=== PATIENT | female | born 1965 | race Caucasian/White ===

== ENCOUNTER → 2016-10-22 | Outpatient (CLI) | payer BC ==
[~2016-10-22] MED LIST: SERT-234 PO
== END | disposition home or self-care (01) ==
LOC: C.LABSPEC 10:52
PROVIDERS: ATTEND Nurse Practitioner Family
DX: J02.9 Acute pharyngitis, unspecified (principal)

== ENCOUNTER 2024-04-15 17:18 | Observation (INO) ==
--- NOTE | 2024-04-15 17:22 | ED Triage Note ---
Date of Service April 15, 2024 Provider in Triage Author: Jordin Mendez History of Present Illness This patient was briefly evaluated while in triage. An abbreviated physical exam was performed. This patient is a 59-year-old Female who presents to the ED for evaluation chest pain/pressure, jaw pain on and off in the evenings x a couple of months last week happened during the day with vomiting and back pain left chest/neck pressure acutely today Physical Exam GENERAL: NAD CARDIOVASCULAR: RRR RESPIRATORY: CTA ABDOMEN: BS x 4. Nontender to palpation. Initial orders for labs and / or imaging were placed and patient was placed in the waiting area until a bed is available. Please see further documentation for the full ED course.
[2024-04-15] MEDS: ASPIRIN 81 MG CHEW PO STA (17:36)
[2024-04-15 17:51] LABS: Basophils # (auto) 0.02 K/uL (0.00-0.20); Basophils % (auto) 0.5 %; Eosinophils # (auto) 0.09 K/uL (0.00-0.50); Eosinophils % (auto) 2.2 %; Hematocrit (blood only) 39.7 % (37.0-47.0); Hemoglobin 13.6 g/dl (12.0-16.0); Immature Granulocytes # (auto) 0.01 K/uL (0.01-0.20); Immature Granulocytes % (auto) 0.2 %; Lymphocytes # (auto) 1.37 K/uL (1.20-3.40); Lymphocytes % (auto) 33.8 %; Mean Corpuscular Hemoglobin 29.4 pg (25.0-34.0); Mean Corpuscular Hgb Conc 34.3 g/dL (32.0-36.0); Mean Corpuscular Volume 85.7 fL (80.0-100.0); Mean Platelet Volume 9.6 fL (9.4-12.4); Monocytes # (auto) 0.35 K/uL (0.11-0.59); Monocytes % (auto) 8.6 %; Neutrophils # (auto) 2.21 K/uL (1.40-6.50); Neutrophils % (auto) 54.7 %; Platelet Count 172 K/uL (130-400); RDW Standard Deviation 37.8 fL (36.4-46.3); Red Blood Count 4.63 M/uL (4.20-5.40); White Blood Count 4.05 K/ul (4.8-10.8)
[2024-04-15 18:05] LABS: Albumin Globulin Ratio 1.6 (0.9-2); Albumin Level 4.7 gm/dl (3.4-5.0); BUN Creatinine Ratio 14.5 (10-20); Bilirubin,Total 0.5 mg/dl (0.2-1.0); Calcium 9.4 mg/dl (8.6-10.3); Est GFR (African American) 89.5 ml/min; Est GFR (Non-African American) 77.2 ml/min; Potassium 3.5 mmol/L (3.5-5.1); Total Protein 7.7 gm/dl (6.0-8.3)
--- NOTE | 2024-04-15 18:08 | XRay Report ---
XR chest 1V not portable CLINICAL HISTORY: Chest pain. COMPARISON STUDY: Chest radiograph July 21, 2014. FINDINGS: Postoperative findings within the spine are incidentally noted. Lung volumes are normal. Leonor ngs are clear. There is no pneumothorax or pleural effusion. Cardiac size is normal. Mediastinal cont ours are normal. There is no evidence for pulmonary edema. IMPRESSION: No acute cardiopulmonary findings. ACT 112: Negative or not required by law. Electronically signed by: Milton Estevez M.D. 04/15/2024 6:06 PM
[2024-04-15 18:12] LABS: Troponin I High Sensitivity 2.9 pg/ml (0-14)
[2024-04-15] MEDS: OPTIRAY 320 125ml IV ONE (19:06)
--- NOTE | 2024-04-15 19:16 | Emergency Department Note ---
Impression & Plan Precordial chest pain, Hypertension ED Provider Note NAME: CAIT AYALA AGE: 59 SEX: F : 1965 ARRIVES VIA: Walk-In INFORMANT: [Patient] ED PROVIDER(S): [Jose Talamantes MD] CHIEF COMPLAINT: Chest pain HISTORY OF PRESENT ILLNESS: The patient is a 59-year-old female with a family history of coronary disease. She states that for several weeks, she has noticed some chest pressure that goes to her teeth. This was first noticed initially at rest when in bed. The episodes would last 15 minutes. Over the last week, there have been increasing episodes. The severity has increased. Last week, during the day, she had an episode of pain that went to her teeth and back. She was nauseated and vomited 1 time. He thought for a while that taking a deep breath seemed to make the pain a bit worse across the anterior chest. She felt mildly short of breath. The patient states that since this episode a week ago, she has never felt back to baseline. She has not really noticed any exertional chest pain but there is a persistent heaviness across the chest. She has not had fever or cough. PMHx/PSHx/Social Hx: See Below PHYSICAL EXAM: GENERAL: Patient is in no acute distress. HEENT: No acute trauma, normocephalic atraumatic, mucous membranes moist, no nasal congestion. NECK: No stridor, no adenopathy, no meningismus, trachea is midline. LUNGS: Clear to auscultation bilaterally, no wheeze, no rhonchi, breath sounds equal. HEART: Subtle systolic murmur heard at the right sternal border. Regular rate and rhythm. Chest: Nontender chest wall. ABDOMEN: Soft, nontender, no peritonitis. EXTREMITIES: No cyanosis, full range of motion of all the joints without pain or difficulty. NEUROLOGIC: Oriented x 3, no acute motor or sensory deficits, no focal weakness. SKIN: No jaundice, no diaphoresis. DIFFERENTIAL DIAGNOSIS: Angina, AR, esophageal spasm, reflux, aortic dissection, PE, among others. EMERGENCY DEPARTMENT PROCEDURES: MEDICAL DECISION MAKING: There is no leukocytosis or concerning anemia. There is a normal platelet count. No renal failure or significant electrolyte abnormality. No concerning liver enzyme elevation. No evidence for pancreatitis. ECG shows a sinus rhythm, no acute ischemic change. Cardiac enzyme testing x 1 is not consistent with acute cardiac injury. Chest x-ray does not show mediastinal widening, pneumonia or pneumothorax. On exam, the patient was somewhat hypertensive. Her chest pain was not reproducible with palpation. Because of her complaints and description of the pain a chest CT was done, there was no aortic dissection or PE noted. The patient presents with chest pain which radiates to her teeth. Her episodes have been increasing in severity and frequency. The patient's complaints are possibly consistent with angina. I do think further cardiac workup is warranted. Patient had received oral aspirin in triage. No further/additional aspirin given. I did speak with the patient and case management, the on-call hospitalist was consulted. Prior/Outside records/notes reviewed: None ECG per my interpretation: Indication was chest pain. The ECG shows a normal sinus rhythm with a rate of 71. There is no ST elevation, no PVCs. The QTc is 425. Continuous Cardiac Monitoring per my interpretation: An order was placed for continuous cardiac monitoring. The monitor shows a rate of 85 with normal sinus rhythm. Imaging/x-ray results per my interpretation: Chest x-ray does not show mediastinal widening, pneumonia or pneumothorax. Chronic Medical/Social conditions affecting care: Care/Management discussed with: Case management, the on-call hospitalist. Level of care consideration(s): After review of the information above and other included data: --I believe the patient requires escalation of care to admission DISPOSITION: Admission Past Med/Surg History Problem List (Updated 04/16/24 @ 01:29 by Jose Talamantes MD) Hypertension (Acute) Precordial chest pain (Acute) Bulging lumbar disc Chest pain Left lower quadrant pain Depression Dyspepsia Cervical stenosis of spinal canal (Acute 08/04/14) Medical History Fracture, radius Surgical History H/O neck surgery History of tubal ligation Hx of laparoscopy Family History (Updated 10/01/22 @ 10:37 by DAMARIS Givens) Brother Psoriasis Father Diabetes Mother Dementia Cardiac disorder Family/Other Arthritis Denies family history of Ovarian cancer Prostate cancer Myocardial infarction Breast cancer Colorectal cancer Social History Smoking Status: Never smoker Second Hand Exposure: No; Do You Dip or Chew Tobacco: No; Hx Alcohol Use: No Hx Substance Use: No Preferred Language: Wolof Communication Ability: Effective Visual Impairment: No Limitations Hearing Ability: Normal Utilization Management Manager Required: No Beliefs That Will Affect Care: None marital status: Current Living Situation: Family Current Living Situation Comment: and son current occupational status: employed current occupation: C[employer]ER [employer] How many Children do You have: 3 Feels Safe at Home: Yes Childhood Exposure to Second-Hand Smoke: No Diet: regular caffeine: Yes during the past year weight has: increased > 10 lbs Dental Care, Regularly: Yes Physical Activity Frequency: Daily Seatbelt Use: always Sunscreen Use: Yes Assistive Devices: Denture - Upper and Glasses Allergies Allergies Allergy/AdvReac Type Severity Reaction Status Date / Time No Known Allergies Allergy Verified 10/28/23 09:43 Home Meds Home Medications Medication Instructions Recorded Confirmed betamethasone dipropionate 0.05 % 1 applic topical BID PRN Other 04/15/24 04/15/24 topical ointment calcipotriene 0.005 % topical cream 1 applic topical BID PRN Other 04/15/24 04/15/24 clobetasol 0.05 % topical ointment 1 applic topical BID PRN Other 04/15/24 04/15/24 mupirocin 2 % topical ointment 1 applic topical BID PRN Other 04/15/24 04/15/24 Previous Rx's Medication Instructions Recorded sertraline 100 mg tablet (Zoloft) 100 mg PO DAILY #90 tabs 04/15/24 Results & Data (ED) Vital Signs Vital Signs - 24 hr 04/15/24 17:20 04/15/24 19:10 04/15/24 19:52 Temperature 36.3 C L Temperature Source Temporal Artery Scan Pulse Rate 85 60 Pulse Rate from SpO2 Sensor Respiratory Rate 18 Respiratory Effort / Characteristics Non-Labored Respiratory Depth Normal Respiratory Pattern Regular Blood Pressure 187/102 H Blood Pressure Mean 130 Pulse Oximetry 98 Oxygen Delivery Method Room Air Room Air Sepsis Recent Fever Within 48 Hours No Sepsis New/Unexplained Change in Mental Status N/A Sepsis Action Taken by Nursing No Action Required 04/15/24 20:03 04/15/24 20:39 04/15/24 20:54 Temperature Temperature Source Pulse Rate 61 65 64 Pulse Rate from SpO2 Sensor 63 69 66 Respiratory Rate 17 20 12 Respiratory Effort / Characteristics Respiratory Depth Respiratory Pattern Blood Pressure 162/99 H 142/75 H Blood Pressure Mean 120 97 Pulse Oximetry 99 98 98 Oxygen Delivery Method Sepsis Recent Fever Within 48 Hours Sepsis New/Unexplained Change in Mental Status Sepsis Action Taken by Nursing 04/15/24 21:15 Temperature Temperature Source Pulse Rate 64 Pulse Rate from SpO2 Sensor 64 Respiratory Rate 18 Respiratory Effort / Characteristics Respiratory Depth Respiratory Pattern Blood Pressure 157/88 H Blood Pressure Mean 111 Pulse Oximetry 96 Oxygen Delivery Method Sepsis Recent Fever Within 48 Hours Sepsis New/Unexplained Change in Mental Status Sepsis Action Taken by Assisted Medications Current Medication List: was personally reviewed by me Laboratory Data Attestation: I reviewed the patient's lab results. 04/15/24 17:32 04/15/24 17:32 Lab Results 04/15/24 Range/Units 17:32 WBC 4.05 L (4.8-10.8) K/ul RBC 4.63 (4.20-5.40) M/uL Hgb 13.6 (12.0-16.0) g/dl Hct 39.7 (37.0-47.0) % MCV 85.7 (80.0-100.0) fL MCH 29.4 (25.0-34.0) pg MCHC 34.3 (32.0-36.0) g/dL RDW Std Deviation 37.8 (36.4-46.3) fL RDW Coeff of Cipriano 12.0 (11.5-14.5) % Plt Count 172 (130-400) K/uL MPV 9.6 (9.4-12.4) fL Immature Gran % (Auto) 0.2 % Neut % (Auto) 54.7 % Lymph % (Auto) 33.8 % [place] % (Auto) 8.6 % Eos % (Auto) 2.2 % Baso % (Auto) 0.5 % Neut # (Auto) 2.21 (1.40-6.50) K/uL Lymph # (Auto) 1.37 (1.20-3.40) K/uL [place] # (Auto) 0.35 (0.11-0.59) K/uL Eos # (Auto) 0.09 (0.00-0.50) K/uL Baso # (Auto) 0.02 (0.00-0.20) K/uL Immature Gran # (Auto) 0.01 (0.01-0.20) K/uL Sodium 139 (136-145) mmol/L Potassium 3.5 (3.5-5.1) mmol/L Chloride 105 (98-107) mmol/L Carbon Dioxide 27 (21-32) mmol/L Anion Gap 7 (3-11) BUN 12 (6-23) mg/dl Creatinine 0.83 (0.6-1.2) mg/dl Est Cr Clr Drug Dosing 82.0 ml/min Est GFR ( Amer) 89.5 ml/min Est GFR (Non-Af Amer) 77.2 ml/min BUN/Creatinine Ratio 14.5 (10-20) Glucose 88 (70-99(Fasting)) mg/dl Calcium 9.4 (8.6-10.3) mg/dl Magnesium 2.0 (1.7-2.4) mg/dl Total Bilirubin 0.5 (0.2-1.0) mg/dl AST 18 (13-39) U/L ALT 18 (7-52) U/L Alkaline Phosphatase 81 (34-104) U/L Troponin I High Sens 2.9 (0-14) pg/ml Total Protein 7.7 (6.0-8.3) gm/dl Albumin 4.7 (3.4-5.0) gm/dl Globulin 3.0 (2.5-4.0) gm/dl Albumin/Globulin Ratio 1.6 (0.9-2) Lipase 48 (11-82) U/L Administered Medications Potassium Chloride/Sodium Chloride (Normal Saline W/20 Meq Kcl) 20 meq in 1,000 mls @ 80 mls/hr IV .[id number] DANICA Stop: 04/16/24 12:44 Last Admin: 04/16/24 00:31 Dose: 80 mls/hr Documented By: VASILIY Discontinued Medications Aspirin (Aspirin 81 Mg Chew) 324 mg PO NOW STA Stop: 04/15/24 17:25 Last Admin: 04/15/24 17:36 Dose: 324 mg Documented By: ASW Aspirin (Aspirin Chew 324 Mg) 324 mg PO NOW STA Stop: 04/15/24 20:04 Last Admin: 04/15/24 20:13 Dose: Not Given Documented By: BS Ioversol (Optiray 320 125ml) 120 ml IV ONCE ONE Stop: 04/15/24 19:07 Last Admin: 04/15/24 19:06 Dose: 120 ml Documented By: MYNOR Imaging Data Radiologist's Impression: Chest X-Ray 04/15/24 17:22 XR chest 1V not portable CLINICAL HISTORY: Chest pain. COMPARISON STUDY: Chest radiograph July 21, 2014. FINDINGS: Postoperative findings within the spine are incidentally noted. Lung volumes are normal. Lungs are clear. There is no pneumothorax or pleural effusion. Cardiac size is normal. Mediastinal contours are normal. There is no evidence for pulmonary edema. IMPRESSION: No acute cardiopulmonary findings. ACT 112: Negative or not required by law. Electronically signed by: Milton Estevez M.D. 04/15/2024 6:06 PM Chest CTA 04/15/24 18:20 Exam(s): CTA CHEST W/WO Contrast IV Amt: 120 ml optiray 320 EXAM: CT Angiography Chest With Intravenous Contrast CLINICAL HISTORY: Reason for exam: cp to back and teeth. TECHNIQUE: Axial computed tomographic angiography images of the chest with intravenous contrast. CTDI is 61.53 mGy and DLP is 1441.09 mGy-cm. Automated exposure control was utilized for the study. A dose lowering technique was utilized adhering to the principles of ALARA. MIP reconstructed images were created and reviewed. CONTRAST: Patient received 120 ml optiray 320 of IV contrast COMPARISON: None FINDINGS: Pulmonary arteries: Unremarkable. No pulmonary embolus identified. Aorta: No acute findings. No aortic aneurysm or dissection. Lungs: Minimal dependent atelectasis bilaterally. No focal consolidation. Pleural space: Unremarkable. No significant effusion. No pneumothorax. Heart: Unremarkable. No cardiomegaly. No significant pericardial effusion. No evidence of RV dysfunction. Bones/joints: Mild degenerative changes of the spine. No acute fracture. No dislocation. Soft tissues: Unremarkable. Lymph nodes: Unremarkable. No enlarged lymph nodes. IMPRESSION: 1. No pulmonary embolus identified. 2. No aortic aneurysm or dissection. 3. No acute pulmonary parenchymal abnormality identified. Electronically signed by: Catherine Mcfarland M.D. 04/15/24 19:51 PM Discharge Plan Visit Data Chief Complaint: Chest Pain Stated Complaint: CHEST PAIN, NAUSEA, HEADACHE ED Provider: Jose Talamantes Discharge Problem: Precordial chest pain, Hypertension Patient Disposition: Admitted As Inpatient Condition: Fair Discharge Instructions Interventions: ED Discharge Assessment Last Done: 04/15/24 23:13 Discharge Problem: Hypertension Qualifiers: Hypertension type: unspecified Qualified Code(s): I10 - Essential (primary) hypertension
--- NOTE | 2024-04-15 19:52 | CT Scan Report ---
Exam(s): CTA CHEST W/WO Contrast IV Amt: 120 ml optiray 320 EXAM: CT Angiography Chest With Intravenous Contrast CLINICAL HISTORY: Reason for exam: cp to back and teeth. TECHNIQUE: Axial computed tomographic angiography images of the chest with intravenous contrast. CTDI is 61.53 mGy and DLP is 1441.09 mGy-cm. Automated exposure control was utilized for the study. A dose lowering technique was utilized adhering to the principles of ALARA. MIP reconstructed images were created and reviewed. CONTRAST: Patient received 120 ml optiray 320 of IV contrast COMPARISON: None FINDINGS: Pulmonary arteries: Unremarkable. No pulmonary embolus identified. Aorta: No acute findings. No aortic aneurysm or dissection. Lungs: Minimal dependent atelectasis bilaterally. No focal consolidation. Pleural space: Unremarkable. No significant effusion. No pneumothorax. Heart: Unremarkable. No cardiomegaly. No significant pericardial effusion. No evidence of RV dysfunction. Bones/joints: Mild degenerative changes of the spine. No acute fracture. No dislocation. Soft tissues: Unremarkable. Lymph nodes: Unremarkable. No enlarged lymph nodes. IMPRESSION: 1. No pulmonary embolus identified. 2. No aortic aneurysm or dissection. 3. No acute pulmonary parenchymal abnormality identified. Electronically signed by: Catherine Mcfarland M.D. 04/15/24 19:51 PM
[2024-04-15] MEDS: ASPIRIN CHEW 324 MG PO STA (20:13)
[2024-04-15] MEDS ORDERED: STAT IV/IM STA (21:12)
[2024-04-15] MEDS ORDERED: SODIUM CHLORIDE 1 GM TABLET PO STA (21:12)
[2024-04-15] MEDS ORDERED: SODIUM CHLORIDE 3 % 100 ML IV ONE (21:12)
--- NOTE | 2024-04-15 21:47 | History & Physical Report ---
Date of Service April 15, 2024 Assessment & Plan (1) Chest pain: (2) Depression: (3) Dyspepsia: (4) Cervical stenosis of spinal canal: (5) Bulging lumbar disc: Plan Chest pain radiating to neck and teeth- The patient will be admitted to telemetry for serial cardiac enzymes, serial EKG's, cardiac rhythm monitoring and a 2-D echocardiogram with Dopplers. Given aspirin 324 mg in the ED EKG without acute changes Normal troponin Chest x-ray negative CTA PE protocol negative for PE Patient has had intermittent symptoms over the past months, however, attempts today are more persistent, and now involve radiation of the pressure to neck Cardiac workup was otherwise negative, will need a dobutamine stress echocardiogram prior to discharge, as patient cannot walk on treadmill due to back pain Lumbar disc disease/cervical spinal canal stenosis- Patient reports that she will be okay as long as she can reposition herself periodically Dyspepsia/GERD- Start pantoprazole Depression- Continue Sertraline History of Present Illness Chief Complaint: The patient presents to the emergency department with concerns regarding more persistent chest discomfort than usual, and at this time radiating pressure s ensation in her neck and teeth Primary Care Provider: Radha Noonan MD The patient is a 59-year-old female with depression, dyspepsia, cervical canal spinal stenosis and obesity. She presents to the emergency department with chest pressure, that been present intermittently for several weeks, however, this time the pressure has been more persistent, and radiates toward her neck and teeth. She did have 1 episode of nausea and vomiting, and has not taken any medication for Allergies Allergy/AdvReac Type Severity Reaction Status Date / Time No Known Allergies Allergy Verified 10/28/23 09:43 Home Medications Medication Instructions Recorded Confirmed Type betamethasone dipropionate 0.05 % 1 applic topical BID PRN Other 04/15/24 04/15/24 History topical ointment calcipotriene 0.005 % topical cream 1 applic topical BID PRN Other 04/15/24 04/15/24 History clobetasol 0.05 % topical ointment 1 applic topical BID PRN Other 04/15/24 04/15/24 History mupirocin 2 % topical ointment 1 applic topical BID PRN Other 04/15/24 04/15/24 History sertraline 100 mg tablet (Zoloft) 100 mg PO DAILY #90 tabs 04/15/24 04/15/24 Rx Past Med/Surg History Problem List (Updated 04/15/24 @ 22:11 by Arcadio Nichols MD) Bulging lumbar disc Chest pain Left lower quadrant pain Depression Dyspepsia Cervical stenosis of spinal canal (Acute 08/04/14) Medical History Bulging lumbar disc Depression Dyspepsia Fracture, radius Surgical History H/O neck surgery History of tubal ligation Hx of laparoscopy Family History (Updated 10/01/22 @ 10:37 by DAMARIS Givens) Brother Psoriasis Father Diabetes Mother Dementia Cardiac disorder Family/Other Arthritis Denies family history of Ovarian cancer Prostate cancer Myocardial infarction Breast cancer Colorectal cancer Social History Smoking Status: Never smoker Second Hand Exposure: No; Do You Dip or Chew Tobacco: No; Hx Alcohol Use: Yes Alcohol type: wine Alcohol Intake Frequency: Monthly or Less Hx Substance Use: No Preferred Language: Kyrgyz Communication Ability: Effective Visual Impairment: No Limitations Hearing Ability: Normal 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 marital status: Current Living Situation: Spouse current occupational status: employed current occupation: [employer] How many Children do You have: 3 Feels Safe at Home: Yes Childhood Exposure to Second-Hand Smoke: No Diet: regular caffeine: Yes during the past year weight has: increased > 10 lbs Dental Care, Regularly: Yes Physical Activity Frequency: Daily Seatbelt Use: always Sunscreen Use: Yes Assistive Devices: Denture - Upper and Glasses Review of Systems Review of Systems: The patient denies palpitations, cough, lower extremity swelling, sore throat, fevers, chills, sweats, diarrhea , constipation, abdominal pain, pelvic pain, blood in urine or stool, dysuria, urinary frequency or urgency, lightheadedness, dizziness, headache, memory loss, loss of consciousness, rash, abnormal bruising or bleeding, imbalance, focal or generalized weakness, numbness or tingling in arms or legs, generalized arthralgias or myalgias, back pain, or night sweats. The review of systems is otherwise negative other than for that already noted above, and at least 10 systems have been reviewed. Physical Exam Physical Exam: The patient is awake, alert and oriented 3, well developed and well nourished, normocephalic and atraumatic, lying in bed and in no acute distress. HEENT--PERRL, EOMI, mucous membranes and oropharynx normal Neck--supple. No JVD. No bruits. Thyroid normal, trachea midline, no adenopathy. Heart--normal S1 and S2. No murmurs, rubs or gallops. Lungs--clear bilaterally, no respiratory distress, no accessory muscle use. Abdomen--normal bowel sounds and soft. Nontender. Nondistended, no hernias or masses, no organomegaly. Extremities--no cyanosis or clubbing. No edema. There are good distal pulses b/l. Dermatologic--normal skin turgor, normal color, no abnormal lymph nodes, no rash. Neurologic--cranial nerves II through XII grossly intact. Rheumatologic--normal range of motion. Psychiatric--normal affect. Results & Data Results & Data Vital Signs (Past 12 Hours) Vital Signs Temp Pulse Resp BP Pulse Ox O2 Del Method 04/15/24 20:03 61 17 162/99 H 99 04/15/24 19:52 60 04/15/24 19:10 Room Air 04/15/24 17:20 36.3 C L 85 18 187/102 H 98 Room Air Laboratory Results Laboratory Results WBC 4.05 K/ul (4.8-10.8) L 04/15/24 17: RBC 4.63 M/uL (4.20-5.40) 04/15/24 17:32 Hgb 13.6 g/dl (12.0-16.0) 04/15/24 17: Hct 39.7 % (37.0-47.0) 04/15/24 17: MCV 85.7 fL (80.0-100.0) 04/15/24 17:32 MCH 29.4 pg (25.0-34.0) 04/15/24 17: MCHC 34.3 g/dL (32.0-36.0) 04/15/24 17:32 RDW Std Deviation 37.8 fL (36.4-46.3) 04/15/24 17:32 RDW Coeff of Cipriano 12.0 % (11.5-14.5) 04/15/24 17:32 Plt Count 172 K/uL (130-400) 04/15/24 17:32 MPV 9.6 fL (9.4-12.4) 04/15/24 17:32 Immature Gran % (Auto) 0.2 % 04/15/24 17:32 Neut % (Auto) 54.7 % 04/15/24 17:32 Lymph % (Auto) 33.8 % 04/15/24 17:32 Hawkins % (Auto) 8.6 % 04/15/24 17:32 Eos % (Auto) 2.2 % 04/15/24 17:32 Baso % (Auto) 0.5 % 04/15/24 17:32 Neut # (Auto) 2.21 K/uL (1.40-6.50) 04/15/24 17:32 Lymph # (Auto) 1.37 K/uL (1.20-3.40) 04/15/24 17:32 Hawkins # (Auto) 0.35 K/uL (0.11-0.59) 04/15/24 17:32 Eos # (Auto) 0.09 K/uL (0.00-0.50) 04/15/24 17:32 Baso # (Auto) 0.02 K/uL (0.00-0.20) 04/15/24 17:32 Immature Gran # (Auto) 0.01 K/uL (0.01-0.20) 04/15/24 17:32 Sodium 139 mmol/L (136-145) 04/15/24 17:32 Potassium 3.5 mmol/L (3.5-5.1) 04/15/24 17:32 Chloride 105 mmol/L (98-107) 04/15/24 17:32 Carbon Dioxide 27 mmol/L (21-32) 04/15/24 17:32 Anion Gap 7 (3-11) 04/15/24 17:32 BUN 12 mg/dl (6-23) 04/15/24 17:32 Creatinine 0.83 mg/dl (0.6-1.2) 04/15/24 17:32 Est Cr Clr Drug Dosing 82.0 ml/min 04/15/24 17:32 Est GFR ( Amer) 89.5 ml/min 04/15/24 17:32 Est GFR (Non-Af Amer) 77.2 ml/min 04/15/24 17:32 BUN/Creatinine Ratio 14.5 (10-20) 04/15/24 17:32 Glucose 88 mg/dl (70-99(Fasting)) 04/15/24 17:32 Calcium 9.4 mg/dl (8.6-10.3) 04/15/24 17:32 Magnesium 2.0 mg/dl (1.7-2.4) 04/15/24 17:32 Total Bilirubin 0.5 mg/dl (0.2-1.0) 04/15/24 17:32 AST 18 U/L (13-39) 04/15/24 17:32 ALT 18 U/L (7-52) 04/15/24 17:32 Alkaline Phosphatase 81 U/L (34-104) 04/15/24 17:32 Troponin I High Sens 2.9 pg/ml (0-14) 04/15/24 17:32 Total Protein 7.7 gm/dl (6.0-8.3) 04/15/24 17:32 Albumin 4.7 gm/dl (3.4-5.0) 04/15/24 17:32 Globulin 3.0 gm/dl (2.5-4.0) 04/15/24 17:32 Albumin/Globulin Ratio 1.6 (0.9-2) 04/15/24 17:32 Lipase 48 U/L (11-82) 04/15/24 17:32 Impressions Chest X-Ray 04/15/24 17:22 XR chest 1V not portable CLINICAL HISTORY: Chest pain. COMPARISON STUDY: Chest radiograph July 21, 2014. FINDINGS: Postoperative findings within the spine are incidentally noted. Lung volumes are normal. Lungs are clear. There is no pneumothorax or pleural effusion. Cardiac size is normal. Mediastinal contours are normal. There is no evidence for pulmonary edema. IMPRESSION: No acute cardiopulmonary findings. ACT 112: Negative or not required by law. Electronically signed by: Milton Estevez M.D. 04/15/2024 6:06 PM Chest CTA 04/15/24 18:20 Exam(s): CTA CHEST W/WO Contrast IV Amt: 120 ml optiray 320 EXAM: CT Angiography Chest With Intravenous Contrast CLINICAL HISTORY: Reason for exam: cp to back and teeth. TECHNIQUE: Axial computed tomographic angiography images of the chest with intravenous contrast. CTDI is 61.53 mGy and DLP is 1441.09 mGy-cm. Automated exposure control was utilized for the study. A dose lowering technique was utilized adhering to the principles of ALARA. MIP reconstructed images were created and reviewed. CONTRAST: Patient received 120 ml optiray 320 of IV contrast COMPARISON: None FINDINGS: Pulmonary arteries: Unremarkable. No pulmonary embolus identified. Aorta: No acute findings. No aortic aneurysm or dissection. Lungs: Minimal dependent atelectasis bilaterally. No focal consolidation. Pleural space: Unremarkable. No significant effusion. No pneumothorax. Heart: Unremarkable. No cardiomegaly. No significant pericardial effusion. No evidence of RV dysfunction. Bones/joints: Mild degenerative changes of the spine. No acute fracture. No dislocation. Soft tissues: Unremarkable. Lymph nodes: Unremarkable. No enlarged lymph nodes. IMPRESSION: 1. No pulmonary embolus identified. 2. No aortic aneurysm or dissection. 3. No acute pulmonary parenchymal abnormality identified. Electronically signed by: Catherine Mcfarland M.D. 04/15/24 19:51 PM Code Status & VTE Plan Code Status Full code VTE Prophylaxis Plan VTE Prophylaxis will be ordered: Yes PG Care Time/CCT Total # of Minutes Spent Total Time Spent with Patient: Total time spent is greater than 50% in coordination of care (as documented) at patient's floor/unit and/or counseling patient: Coding Level of Care Code 89990 INT INP/OBS CARE 3/75MIN Diagnoses Chest pain R07.9 Depression F32.9 Dyspepsia R10.13 Cervical stenosis of spinal canal M48.02 Bulging lumbar disc M51.26
[2024-04-15] MEDS ORDERED: ACETAMINOPHEN 325 MG TAB PO PRN (23:01)
[2024-04-15] MEDS ORDERED: ONDANSETRON INJ 2 MG/ML 2 ML VIAL IV PRN (23:01)
[2024-04-15 23:58] VITALS: RESP 18
[2024-04-16] MEDS: NSS + 20MEQ KCL 20 MEQ/1,000 ML BAG IV SCH (00:31)
[2024-04-16] MEDS: PANTOprazole 40 MG TAB PO STA (02:14)
--- NOTE | 2024-04-16 08:28 | Hospitalist Progress Note ---
Date of Service April 16, 2024 Assessment & Plan (1) Chest pain: (2) Depression: (3) Dyspepsia: (4) Cervical stenosis of spinal canal: (5) Bulging lumbar disc: Plan #Chest pain radiating to neck and teeth- The patient will be admitted to telemetry for serial cardiac enzymes, serial EKG's, cardiac rhythm monitoring and a 2-D echocardiogram with Dopplers. Given aspirin 324 mg in the ED EKG without acute changes Normal troponin Chest x-ray negative CTA PE protocol negative for PE Patient has had intermittent symptoms over the past months, however, attempts today are more persistent, and now involve radiation of the pressure to neck Cardiac workup was otherwise negative, will need a dobutamine stress echocardiogram prior to discharge, as patient cannot walk on treadmill due to back pain Lumbar disc disease/cervical spinal canal stenosis- Patient reports that she will be okay as long as she can reposition herself periodically Dyspepsia/GERD- Start pantoprazole Depression- Continue Sertraline Admission and Anticipated Discharge Date Admission Date: April 15, 2024 Results & Data Results & Data Vital Signs (Past 12 Hours) Vital Signs Temp Pulse Pulse Resp BP BP Pulse Ox 04/16/24 07:55 36.6 C 66 18 126/84 94 04/16/24 04:05 36.6 C 73 18 107/73 96 04/15/24 22:56 66 04/15/24 22:50 36.7 C 66 18 179/95 H 99 04/15/24 22:03 82 21 136/73 96 04/15/24 21:57 73 20 95 04/15/24 21:15 64 18 157/88 H 96 04/15/24 20:54 64 12 98 04/15/24 20:39 65 20 142/75 H 98 O2 Del Method 04/16/24 07:55 Room Air 04/16/24 04:05 Room Air 04/15/24 22:56 04/15/24 22:50 Room Air 04/15/24 22:03 04/15/24 21:57 04/15/24 21:15 04/15/24 20:54 04/15/24 20:39 PG Care Time/CCT Total # of Minutes Spent Total Time Spent with Patient: Total time spent is greater than 50% in coordination of care (as documented) at patient's floor/unit and/or counseling patient: Coding Diagnoses Chest pain R07.9 Depression F32.9 Dyspepsia R10.13 Cervical stenosis of spinal canal M48.02 Bulging lumbar disc M51.26
[2024-04-16] MEDS ORDERED: SODIUM CHLORIDE 1 GM TABLET PO SCH (09:00)
[2024-04-16] MEDS: SERTRALINE HCL 100 MG TABLET PO SCH (10:10)
[2024-04-16 12:10] VITALS: TEMP 98.1
[2024-04-16] MEDS: METOPROLOL TARTRATE 1 MG/ML VIAL IV ONE (15:48)
[2024-04-16] MEDS: ATROPINE SULFATE 0.1 MG/ML 10ML SYR IV ONE (15:48)
[2024-04-16] MEDS: DOBUTamine HCL 12.5 MG/ML 20 ML VIAL IV ONE (15:50)
[2024-04-16 17:36] VITALS: BP 116/76; PULSE 66; O2SAT 98
--- NOTE | 2024-04-16 17:36 | XCELERA ---
[id number]
--- NOTE | 2024-04-16 17:53 | Discharge Summary ---
Discharge Summary Date of Service April 16, 2024 Principal Dx & Hospital Course #1 = Principal Diagnosis (1) Chest pain: (2) Depression: (3) Dyspepsia: (4) Cervical stenosis of spinal canal: (5) Bulging lumbar disc: Plan #Chest pain radiating to neck and teeth- The patient will be admitted to telemetry for serial cardiac enzymes, serial EKG's, cardiac rhythm monitoring and a 2-D echocardiogram with Dopplers. Given aspirin 324 mg in the ED EKG without acute changes Normal troponin Chest x-ray negative CTA PE protocol negative for PE Stress test negative will have pt follow up with cardiology as outpatient Lumbar disc disease/cervical spinal canal stenosis- Patient reports that she will be okay as long as she can reposition herself periodically Dyspepsia/GERD- Start pantoprazole Depression- Continue Sertraline Admission HPI Per Admitting Provider The patient is a 59-year-old female with depression, dyspepsia, cervical canal spinal stenosis and obesity. She presents to the emergency department with chest pressure, that been present intermittently for several weeks, however, this time the pressure has been more persistent, and radiates toward her neck and teeth. She did have 1 episode of nausea and vomiting, and has not taken any medication for Discharge Exam Gen: no acute distress, resting in bed comfortable HEENT: NC/AT, MMM CVS: s1s2 nl, RRR Lungs: CTAB Abd: soft, NT, nl BS Ext: no edema Psych: pleasant & cooperative Discharge Plan Discharge Items Patient Disposition: Home - Self-Care Reason For Visit: CHEST PAIN TO NECK Discharge Diagnosis: chest pain Condition on Discharge: Fair Activity: Resume your previous activity Non-emergency contact: Primary Care Provider Call non-emergency contact if: you have any medication questions and your symptoms worsen Follow-up/Referrals: Herb Park MD [Physician] - (chest pain) Radha Noonan MD [Primary Care Provider] - Diet: Heart Healthy Addtl Attending Provider Instructions: Please follow up with cardiology as outpatient Please follow up with your PCP in about 7 to 10 days Pending Studies at Discharge: No Stand-Alone Forms: My [employer] Medications and DC Order Prescriptions: Continued sertraline [Zoloft] 100 mg tablet 100 mg PO DAILY Qty: 90 1RF calcipotriene 0.005 % cream 1 applic topical BID PRN (Reason: Other) Rx Instructions: rub in gently and completely into hands mupirocin 2 % ointment 1 applic topical BID PRN (Reason: Other) Rx Instructions: Apply to the open cracks on the hands BID clobetasol 0.05 % ointment 1 applic topical BID PRN (Reason: Other) Rx Instructions: Apply to the hands twice daily, allow to soak into hands for a few hours. betamethasone dipropionate 0.05 % ointment 1 applic topical BID PRN (Reason: Other) Rx Instructions: Apply to affected areas on hands BID x 2-3 weeks prn flaring Discharge Orders: Discharge Order (Routine); Ordered 04/16/24 Ordered By: Matilda Ovalle Admission Data Admit Date/Time: 04/15/24 21:46 Attending Provider: Matilda Ovalle Admit Provider: Arcadio Nichols Primary Care Provider: Radha Noonan Other Providers: Arcadio Nichols Hospital Stay Data Consultations 04/15/24 20:30 ED Decision to Admit Stat Diagnostic Imagining Performed 04/15/24 18:20 CT angio chest dissec wo/w con Stat Discharge Instructions Given to Patient (Per Discharging Provider) Please follow up with cardiology as outpatient Please follow up with your PCP in about 7 to 10 days Total Time Total Time Spent Total Time Spent (In Minutes): 62 Coding Level of Care Code 32836 INP/OBS DISCH >30 MIN Diagnoses Chest pain R07.9 Depression F32.9 Dyspepsia R10.13 Cervical stenosis of spinal canal M48.02 Bulging lumbar disc M51.26
--- NOTE | 2024-04-16 22:08 | Electrocardiogram Report ---
Test Reason : Blood Pressure : */* mmHG Vent. Rate : 71 BPM Atrial Rate : 71 BPM P-R Int : 156 ms QRS Dur : 72 ms QT Int : 392 ms P-R-T Axes : 60 -6 55 degrees QTcB Int : 425 ms Normal sinus rhythm Normal ECG When compared with ECG of 21-Jul-2014 14:36, No significant change was found Confirmed by Herb Park ([id number]) on 04/16/2024 10:07:46 PM Referred By: REFERRED SELF Confirmed By: Herb Park
--- NOTE | 2024-04-16 22:09 | Electrocardiogram Report ---
Test Reason : Blood Pressure : */* mmHG Vent. Rate : 65 BPM Atrial Rate : 65 BPM P-R Int : 166 ms QRS Dur : 74 ms QT Int : 418 ms P-R-T Axes : 64 9 31 degrees QTcB Int : 434 ms Normal sinus rhythm When compared with ECG of 15-Apr-2024 17:26, No significant change Confirmed by Herb Park ([id number]) on 04/16/2024 10:09:00 PM Referred By: REFERRED SELF Confirmed By: eHrb Park
== END 2024-04-16 19:20 | disposition home or self-care (01) ==
LOC: ED 17:18 → 2W 17:18 → SUATTDRO 21:46 → 2W 23:13